=== PATIENT | female | born 1985 | race African-American/Black ===

== ENCOUNTER 2017-03-24 01:40 | Emergency (ER) | payer BC ==
[~2017-03-24 01:40] MED LIST: AMOXICILLIN875 MG PO; BACTRIM DS TABL1 TA2 PO; FLEXERIL PO; FLEXERIL10 MG PO; HYDROCORTISONE TP; KEFLEX500 M1 PO; KEFLEX500 MG PO; MEDROL4 MG/DOSE- PO; MOTRIN600 M1 PO; MOTRIN600 M2 PO; NAPROXEN PO; NO MEDICATIONS; PRENATAL1 TA1 PO; ROBAXIN 750750 M1 PO; VOLTAREN50 MG PO
[2017-03-24 02:41] LABS: URINE APPEARANCE CLOUDY; URINE BILIRUBIN NEG (NEG); URINE BLOOD TRACE (NEG); URINE COLOR YELLOW; URINE GLUCOSE NEG (NEG); URINE KETONE NEG (NEG); URINE LEUKOCYTE ESTERASE 1+ (NEG); URINE NITRATE POS (NEG); URINE PH 6.5 (5-8); URINE PROTEIN NEG (NEG); URINE SPECIFIC GRAVITY 1.021 (1.003-1.035)
[2017-03-24 02:44] LABS: CULTURE INDICATED? YES; URINE BACTERIA AUWI 4+ (NEGATIVE); URINE SQUAMOUS EPITHELIAL CELL OCC /[HPF]
[2017-03-26 10:30] LABS: CHLAMYDIA TRACH Not Detected (Not Detected); N GONOR Not Detected (Not Detected)
== END 2017-03-24 03:30 | disposition home or self-care (01) ==
LOC: CFTX 01:40 → CED 01:40 → CFTX 01:45
PROVIDERS: Nurse Practitioner Family
DX: N39.0 Urinary tract infection, site not specified (principal); N76.0 Acute vaginitis
CPT/HCPCS: 81003; 84703; 87086; 87491; 87591; 87808; 87905; 96372; 99284; J0696